=== PATIENT | female | born 1990 | race African-American/Black ===

== ENCOUNTER 2016-09-11 12:33 | Emergency (ER) ==
--- NOTE | 2016-09-11 14:05 | Diag Imaging Result Document ---
PROCEDURE NAME: ANKLE COMPLETE LEFT - 09/11/2016 LEFT ANKLE 3 VIEWS: FINDINGS: There is no evidence of fracture or dislocation. There is no evidence of soft tissue swelling. There are some degenerative changes in the tarsal navicular joint. IMPRESSION: No evidence of acute bony disease.
--- NOTE | 2016-09-11 14:20 | PROVIDER DOCUMENTATION ---
HPI-Musculoskeletal Pain/Inj - GENERAL Chief Complaint: Extremity Injury Stated Complaint: EXTREMITY PAIN/INJURY Time Seen by Provider: 09/11/16 14:08 Source: patient - HX OF PRESENT ILLNESS-MUSKULOSKELTAL Nature of Presenting Problem: 26 yo female presents to ER with c/o injury to back of ankle while playing basketball [employer]. She states that she felt/heard a loud pop. Quality of Pain: reports: aching, throbbing Severity in ED: moderate Onset/Duration: just prior to arrival Timing: still present Modifying Factors: improves with: movement (worsens), palpation (worsens), other (bearing weight worsesn) Any recent injury?: Yes Locality of Occurance: Other Similar Symptoms Previously?: No Recently seen or treated by another doctor?: No - LOWER EXTREMITY PAIN/INJURY Lower Extremities Pain: ankle: left Context / Method of Injury: reports: twisted Associated Symptoms: reports: denies symptoms Review of Systems - Adult - REVIEW OF SYSTEMS - ADULT Constitutional: reports: no symptoms reported Eyes: reports: no symptoms reported Ears, Nose, Mouth & Throat: reports: no symptoms reported Cardiovascular: reports: no symptoms reported Respiratory: reports: no symptoms reported Gastrointestinal: reports: no symptoms reported Genitourinary: reports: no symptoms reported Musculoskeletal: reports: see HPI, joint pain Integumentary: reports: no symptoms reported Neurological: reports: no symptoms reported Psychiatric: reports: no symptoms reported Endocrine: reports: no symptoms reported Hematologic/Lymphatic: reports: no symptoms reported Allergic/Immunologic: reports: no symptoms reported All Other Systems: Reviewed and Negative Past History - Adult - PAST MEDICAL HISTORY-ADULT Review of Records: reports: Old Records Reviewed, Nursing Assessment Review, Medications Reviewed, Social history reviewed & non-contributory. Major Childhood Illnesses: reports: denies history Cardiovascular: reports: denies history Respiratory: reports: denies history Gastrointestinal: reports: denies history Obstetrical/Gynecological: reports: denies history Genitourinary: reports: denies history Musculoskeletal: reports: denies history Neurological: reports: denies history Psychiatric: reports: denies history Endocrine/Immune: reports: denies history Other Conditions: reports: denies history - PRIOR SURGERIES/PROCEDURES Surgical/Procedure History: reports: none - IMMUNIZATION STATUS Childhood Immunizations: See Nurse Assessment Flu Vaccine: See Nurse Assessment - FAMILY HISTORY Family History: reviewed, not pertinent - SOCIAL HISTORY Smoking: denies, non-smoker Substance Use: none/never, denies Alcohol Use Frequency: never Physical Exam-Injury Related - Physical Exam-Injury Related Initial Vital Signs Reviewed: Yes General Appearance: appears well, alert, no apparent distress Eyes: PERRL/EOMI Head, Ears, Nose, Mouth & Throat: normocephalic/atraumatic Respiratory: no respiratory distress Peripheral Pulses: dorsalis-pedis (L): 2+ Extremity: normal inspection, no pedal edema, tenderness (to achilles tendon area on palpation), other (unable to weight bear) Integumentary: normal color, warm/dry Neurologic: grossly normal Psych/Mental Status: normal mood/affect, normal thought content, normal thought process, oriented x 3 - Glascow Coma Score Best Eye Response ([place]): (4) open spontaneously Best Verbal Response ([place]aggie): (5) oriented Best Motor Response (Maggie): (6) obeys commands [place] Total: 15 Progress - PLAN OF CARE/RESULTS Progress/Plan/Lab Results: 0220-Discussed x-ray results/dx/tx/discharge and follow up with orthopedic doctor; patient and family verbalized understanding. Orders Category Date Time Status ANKLE COMPLETE LEFT [RAD] Stat Exams 09/11/16 13:02 Draft Vital Signs - 24 hr 09/11/16 12:50 Temperature 98 F Pulse Rate 88 Respiratory 18 Rate Blood Pressure 133/70 O2 Sat by Pulse 99 Oximetry Orders Category Date Time Status Vineet Wrap Application DIRECTED Care 09/11/16 14:23 Active Crutches DIRECTED Care 09/11/16 14:23 Active ANKLE COMPLETE LEFT [RAD] Stat Exams 09/11/16 13:02 Draft - XRAY 1 XRAY: Left XRAY Study: Ankle Impression: Normal (no evidence of acute injury) XRAY Interpretation: Interpreted by Dr. Norman Departure - Departure Time of Disposition Order: 14:38 DIAGNOSIS: Achilles tendon injury Qualifiers: Encounter type: initial encounter Laterality: left Qualified Code(s): S86.002A - Unspecified injury of left Achilles tendon, initial encounter Left ankle injury Qualifiers: Encounter type: initial encounter Qualified Code(s): S99.912A - Unspecified injury of left ankle, initial encounter Disposition: HOME 01 Certified Medical Emergency: Emergent Condition: Good Additional Instructions: Follow up with orthopedic doctor. Wear vineet wrap and use crutches; weight bear as tolerated. Apply ice to area for 20 minutes several time a day. Take medications as prescribed. ED Follow Up Instructions: You have been treated by a care provider in the Emergency Department. These instructions are being provided to you so you can have an understanding of how to care for yourself upon discharge. Upon discharge from the Emergency Department, you are responsible for making arrangements for follow-up care by a physician of your choice. Take all prescribed medications as directed. Return to the Emergency Department immediately for any new or worsening symptoms. You may call the Physician Referral phone number at [phone] to obtain a list of Physicians who are taking new patients. Prescriptions: Naproxen 500 mg PO BID PRN PRN #20 tablet PRN Reason: Pain Methocarbamol [Robaxin] 500 mg PO BID PRN #20 tablet PRN Reason: Pain Referrals: None,PCP [Primary Care Provider] - Nik Sykes MD [STAFF PHYSICIAN] - Forms: Return to School/Parent Work Instructions: Ankle Sprain, Naproxen delayed-release tablets, Ankle Pain, Methocarbamol tablets Attestation - Physician/ SKYLER Attestation Patient care was provided by Advanced Practice Provider:: Yes Advanced Practice Provider:: Pinky Calle Advanced Practice Provider documentation review:: The Mid-level provider documentation, treatment plan and medical decision making was reviewed by the physician who agrees with all treatment and medical decision making by the MLP.
[2016-09-11 15:58] VITALS: BP 118/66
== END 2016-09-11 15:35 | disposition home or self-care (01) ==
LOC: P.ED 12:33
DX: S86.002A Unspecified injury of left Achilles tendon, initial encounter (principal); M25.572 Pain in left ankle and joints of left foot; X58.XXXA Exposure to other specified factors, initial encounter
CPT/HCPCS: 99284